=== PATIENT | male | born 1965 | race Caucasian/White ===

== ENCOUNTER 2019-01-11 16:28 | Inpatient (IN) | payer OTHER ==
[~2019-01-11] VITALS: Ht 170.2 cm; Wt 79.4 kg
[2019-01-11 16:33] VITALS: BP 147/96
--- NOTE | 2019-01-11 16:33 | NUR ---
PT AMBULATED TO ER BED 04
--- NOTE | 2019-01-11 16:49 | NUR ---
PT PRESENTS TO THE ED WITH C/O VOMITING X2DAYS . PATIENT DENIES ANY PMH. PT REPORTS 5/10 INTERMITTENT EPIGASTRIC PAIN. NO ACTIVE VOMITING AT THIS TIME. NO S/S OF DISTRESS NOTED AT THIS TIME. BED LOWERED WITH SIDE RAILS UP. DOCTOR AWARE OF PATIENT'S STATUS
[2019-01-11] MEDS ORDERED: ONDANSETRON 4 MG ODT PO ONE (16:55)
[2019-01-11] MEDS ORDERED: FAMOTIDINE 20 MG TAB PO ONE (16:55)
[2019-01-11 17:20] LABS: HEMATOCRIT 51.9 % (36-52); MEAN CORPUSCULAR HEMOGLOBIN 29 pg (27-31); MEAN CORPUSCULAR HGB CONC 33 g/dL (33-37); MEAN CORPUSCULAR VOLUME 87.3 fL (80-94); PLATELET COUNT (AUTO) 299 K/uL (140-450); RED BLOOD CELL COUNT(AUTO) 5.95 MIL/uL (4.20-6.10); WHITE BLOOD COUNT (AUTO) 12.5 K/uL (4.8-10.8)
[2019-01-11 17:42] LABS: ALBUMIN 3.8 g/dL (3.4-5.0); ANION GAP 10.4 (8-16); CARBON DIOXIDE 27.2 mmol/L (21-32); CREATININE 1.6 mg/dL (0.7-1.3); POTASSIUM 4.6 mmol/L (3.5-5.1); TOTAL BILIRUBIN 0.7 mg/dL (0.0-1.0)
[2019-01-11 18:05] LABS: LYMPHOCYTES % (MANUAL) 13 % (20-46); MONOCYTES % (MANUAL) 5 % (5-12)
[2019-01-11] MEDS ORDERED: NACL 0.9% 1,000 ML IV ONE (18:40)
--- NOTE | 2019-01-11 18:45 | NUR ---
DR FREDERICK EXPLAINED TO THE PATIENT'S DAUGHTER WHY PATIENT IS BEING ADMITTED. PT IS HESITANT ON BEING ADMITTED. PER DAUGHTER, SHE WILL BRING PATIENT'S TO SPEAK WITH THE PATIENT
--- NOTE | 2019-01-11 18:49 | NUR ---
PT LEFT THE UNIT FOR CT
[2019-01-11 18:55] LABS: APPEARANCE,URINE CLEAR (CLEAR); BILIRUBIN,URINE NEGATIVE (NEGATIVE); BLOOD, URINE TRACE-I (NEGATIVE); COLOR,URINE YELLOW (YELLOW); LEUKOCYTE ESTERASE ,URINE NEGATIVE (NEGATIVE); NITRITE, URINE NEGATIVE (NEGATIVE); UGLUCOSE 3+ (NEGATIVE)
[2019-01-11 19:16] LABS: RBC,URINE 3-10 (FEW) /HPF (0-5); WBC,URINE 0-5 (RARE) /HPF (0-5)
--- NOTE | 2019-01-11 19:26 | NUR ---
RECEIVED REPORT FROM DAY NURSE. NO ACUTE DISTRESS @ THIS TIME. IV INFUSING TO R AC. WILL CONTINUE TO OBSERVE.
--- NOTE | 2019-01-11 19:26 | NUR ---
PATIENT ENDORSED TO INSURANCE PROCESSOR NURSE
[2019-01-11] MEDS: NACL 0.9% 1,000 ML IV SCH (19:36)
[2019-01-11] MEDS ORDERED: DEXTROSE 50% 50 ML SYR IVP PRN (19:40)
[2019-01-11] MEDS ORDERED: ONDANSETRON 4 MG/2 ML VIAL IVP PRN (19:40)
[2019-01-11] MEDS ORDERED: ACETAMINOPHEN 325 MG TAB PO PRN (19:40)
[2019-01-11] MEDS ORDERED: PANTOPRAZOLE 40 MG INJ VIAL IVP SCH (20:00)
[2019-01-11 20:12] VITALS: BP 121/78
--- NOTE | 2019-01-11 20:12 | NUR ---
REPORT RECEIVED FROM ED NURSE AT BEDSIDE. PT IN STABLE CONDITION. AAOX4. INTRODUCED SELF TO PT AND FAMILY. BOARD UPDATED. NO COMPLAINTS OF PAIN. NO SOB. AFEBRILE. IV SITE R AC 20G RUNNING NS@125ML/HR PATENT AND INTACT. SKIN WARM, DRY, AND, INTACT WITH NO OPEN WOUNDS. BED LOCKED IN LOW POSITION. CALL LAZAR WITHIN REACH. SAFETY PRECAUTIONS IN PLACE. ALL NEEDS MET AT THIS TIME.
--- NOTE | 2019-01-11 20:59 | NUR ---
PROTONIX GIVEN IVP. PT TOLERATED WELL.
--- NOTE | 2019-01-11 21:05 | NUR ---
DIABETES AND DIABETES MANAGEMENT DONE. TAUGHT PT HOW TO USE THE BLOOD SUGAR MONITOR, LANCETS, AND TEST STRIPS.
[2019-01-11] MEDS: BLOOD GLUCOSE MONITORING 1 DEV DEV FS SCH (21:11)
--- NOTE | 2019-01-11 21:11 | NUR ---
BS 206. 4 UNITS OF HUMALOG GIVEN.
[2019-01-11] MEDS: INSULIN LISPRO SLIDING SCALE 100 UNITS/ML VIAL SUBQ PRN (21:13)
[2019-01-11] MEDS ORDERED: INFLUENZA VIRUS VACCINE QUAD 0.5 ML SYR IMVAC PRN (23:30)
[2019-01-11] MEDS ORDERED: PNEUMOCOCCAL VACCINE 23 MCG/0.5 ML VIAL IMVAC PRN (23:30)
[2019-01-12] VITALS: BP 109/67
--- NOTE | 2019-01-12 | NUR ---
PT SLEEPING COMFORTABLY BUT AROUSABLE FOR VS CHECK. NO S/S OF DISTRESS NOTED. ALL NEEDS MET AT THIS TIME.
--- NOTE | 2019-01-12 02:15 | NUR ---
PT SLEEPING COMFORTABLY IN BED. NO S/S OF DISTRESS NOTED. WILL CONTINUE TO MONITOR.
[2019-01-12] MEDS: NACL 0.9% 1,000 ML IV SCH (04:02)
--- NOTE | 2019-01-12 04:05 | NUR ---
PT AWAKE AND ALERT NEEDED TO GET UP TO USE THE RESTROOM. NO S/S OF DISTRESS NOTED. AMBULATION WNL. BREATHING WNL. NO COMPLAINTS OF PAIN. NO SOB. WILL CONTINUE TO MONITOR.
[2019-01-12] MEDS: BLOOD GLUCOSE MONITORING 1 DEV DEV FS SCH ×2 (05:27→12:07)
--- NOTE | 2019-01-12 05:27 | NUR ---
BS 188. 2 UNITS OF HUMALOG GIVEN. PT TOLERATED WELL.
[2019-01-12] MEDS: INSULIN LISPRO SLIDING SCALE 100 UNITS/ML VIAL SUBQ PRN ×2 (05:28→12:24)
[2019-01-12 06:32] LABS: BASOPHILS % (AUTO) 0.3 % (0.0-2.0); EOSINOPHILS # (AUTO) 0.2 K/uL (0-0.4); EOSINOPHILS % (AUTO) 1.6 % (0.0-4.0); HEMATOCRIT 43.4 % (36-52); HEMOGLOBIN 14.1 g/dL (12.0-18.0); LYMPHOCYTES # (AUTO) 3.2 K/uL (2.0-11.5); LYMPHOCYTES % (AUTO) 32.2 % (20.5-51.1); MEAN CORPUSCULAR HEMOGLOBIN 28 pg (27-31); MEAN CORPUSCULAR HGB CONC 33 g/dL (33-37); MONOCYTES # (AUTO) 0.7 K/uL (0.8-1.0); MONOCYTES % (AUTO) 6.6 % (1.7-9.3); NEUTROPHILS # (AUTO) 5.9 K/uL (1.8-7.7); NEUTROPHILS % (AUTO) 59.3 % (42.2-75.2); PLATELET COUNT (AUTO) 249 K/uL (140-450); RED BLOOD CELL COUNT(AUTO) 4.99 MIL/uL (4.20-6.10); RED CELL DISTRIBUTION WIDTH 13.7 % (11.6-13.7); WHITE BLOOD COUNT (AUTO) 9.9 K/uL (4.8-10.8)
[2019-01-12 06:46] LABS: ALBUMIN 2.6 g/dL (3.4-5.0); CREATININE 1.1 mg/dL (0.7-1.3); MAGNESIUM 1.4 mg/dL (1.8-2.4); TOTAL BILIRUBIN 0.7 mg/dL (0.0-1.0)
--- NOTE | 2019-01-12 07:05 | NUR ---
REPORT GIVEN TO AM NURSE AT BEDSIDE. PT IN STABLE CONDITION.
--- NOTE | 2019-01-12 07:40 | NUR ---
PATIENT WAS SLEEPING COMFORTABLY, EASILY AROUSABLE BY NAME. RESPIRATION EVEN, UNLABOR ON ROOM AIR. SKIN DRY AND WARM. IV PATENT AND INTACT. DENIED PAIN, N/V AT THIS TIME. PLAN OF CARE WAS DISCUSSED WITH PATIENT. BED AT LOW POSITION, SIDE RAILS UP. CALL LIGHT WITHIN REACH
[2019-01-12 08:00] VITALS: BP 108/68
[2019-01-12] MEDS ORDERED: metFORMIN 500 MG TAB PO SCH (08:00)
--- NOTE | 2019-01-12 08:00 | NUR ---
PATIENT HAS BEEN SCREENED AND CATEGORIZED HIGH NUTRITION RISK. PATIENT WILL BE SEEN WITHIN 1-2 DAYS OF ADMISSION. 01/12/19-01/13/[address]
[2019-01-12] MEDS ORDERED: MAG SULF 2000 MG/WATER PREMIX 50 ML IV PRN (08:50)
--- NOTE | 2019-01-12 09:00 | NUR ---
OK TO DISCHARGE AFTER MAG RIDER IS DONE PER DR. MOJICA
--- NOTE | 2019-01-12 10:00 | NUR ---
PATIENT WAS RESTING COMFORTABLY. RESPIRATION EVEN, UNLABOR ON ROOM AIR. NO DISTRESS NOTED AT THIS TIME
--- NOTE | 2019-01-12 12:00 | NUR ---
PATIENT WAS AWAKE, EATING LUNCH COMFORTABLY. DENIED PAIN, N/V AT THIS TIME. PATIENT TOLERATING DIET WELL. NO DISTRESS NOTED AT THIS TIME. FAMILY AT BEDSIDE. CALL LIGHT WITHIN REACH
--- NOTE | 2019-01-12 14:10 | NUR ---
DISCHARGE INSTRUCTION AND PRESCRIPTION WAS GIVEN AND EXPLAINED TO THE PATIENT VIA [employer] SYSTEMS ANALYST [id number]. PATIENT WAS INSTRUCTED TO GO [facility] FOR HIS MEDICATION PER DR. MOJICA. PATIENT VERBALIZED UNDERSTANDING. IV WAS REMOVED, CATHETER INTACT, NO ACTIVE BLEEDING SEEN. ID BAND WAS REMOVED. ALL BELONGINGS WERE TAKEN WITH THE PATIENT. PATIENT WAS ESCORTED OUT BY STAFF, AMBULATORY WITH STEADY GAIT. PATIENT IS STABLE AT THIS TIME
--- NOTE | 2019-01-12 14:44 | NUR ---
Follow up appointment to see PCP Dr. Julia Harper on 01/19/19 at 1145. address: [facility] [address]. [address] [place] [id number].
--- NOTE | 2019-01-12 15:10 | NUR ---
Called pt at to inform him about his follow up appt. Left a message for pt to call me back.
--- NOTE | 2019-01-13 13:13 | NUR ---
CALLED AND LEFT A MESSAGE FOR THIS PATIENT TO CALL ME ABOUT A FOLLOW UP APPOINTMENT WITH PCP. NO CALL BACK.
--- NOTE | 2019-01-16 08:28 | NUR ---
CALLED THE PATIENT AND SPOKE WITH HIM. CONFIRMED THAT HE HAS AN APPOINTMENT WITH DR. KRAUS ON Dec AT 11:45 A.M. [id number] [facility] [address], [place] PHONE [phone].
== END 2019-01-12 14:10 | disposition home or self-care (01) | DRG 469 ==
LOC: MED 16:28 → MTU 19:41
PROVIDERS: ADMIT Hospitalist; ATTEND Hospitalist
PROC: 3E02340 Introduction of Influenza Vaccine into Muscle, Percutaneous Approach (ICD-10-PCS; principal; 2019-01-12)
PROC: 3E0234Z Introduction of Serum, Toxoid and Vaccine into Muscle, Percutaneous Approach (ICD-10-PCS; 2019-01-12)
DX: N17.9 Acute kidney failure, unspecified (principal); E11.65 Type 2 diabetes mellitus with hyperglycemia; E86.0 Dehydration; R19.7 Diarrhea, unspecified; Z88.0 Allergy status to penicillin; Z23 Encounter for immunization
CPT/HCPCS: 36415; 76705; 80053; 81001; 82948; 83036; 83735; 85025; 87081; 90658; 90732; 99285; C9113; J1815; J3475; J7030; Q0092; Q0162